=== PATIENT | female | born 1965 | race Caucasian/White ===

== ENCOUNTER 2017-08-02 13:31 | Outpatient (CLI) | payer OTHER ==
--- NOTE | 2017-08-02 14:16 | ULT ---
PELVIC ULTRASOUND WITH DOPPLER: (Transabdominal, transvaginal, Patel scale, color flow, and spectral Doppler) Date: 08/02/17 HISTORY: Irregular vaginal bleeding, fibroids. FINDINGS: The uterus measures 6.6 x 6.8 x 3.7 cm. There is a large mass in the uterus consistent with fibroid m easuring 5.8 x 5.5 x 4.5 cm. The endometrium measures 4.0 mm in thickness. No endometrial fluid is se en. The right ovary is not visualized. The left ovary measures 2.3 x 1.1 x 1.5 cm. No adnexal mass or fernandez e fluid is seen in the cul-de-sac. Flow is demonstrated to the left ovary. IMPRESSION: Uterine fibroid. POS: HSANNAN
== END 2017-08-02 13:32 | disposition home or self-care (01) ==
LOC: ULT 13:31
PROVIDERS: ATTEND Family Medicine
DX: N92.6 Irregular menstruation, unspecified (principal); D25.9 Leiomyoma of uterus, unspecified
CPT/HCPCS: 76856

== ENCOUNTER 2017-10-04 13:02 | Outpatient (CLI) | payer OTHER | END 2017-10-04 13:03 | disposition home or self-care (01) | LOC: BICMRI 13:02 | PROVIDERS: ATTEND Family Medicine | DX: M48.02 Spinal stenosis, cervical region (principal); M47.892 Other spondylosis, cervical region; M54.2 Cervicalgia; M79.601 Pain in right arm | CPT/HCPCS: 72141 ==

== ENCOUNTER 2017-10-09 10:44 | Day surgery (SDC) | payer OTHER ==
[2017-10-09] MEDS ORDERED: PROPOFOL 200 MG/20 ML VIAL ONE (11:35)
[2017-10-09] MEDS ORDERED: Lidocaine 1% PF 5 ML VIAL ONE (11:35)
--- NOTE | 2017-10-09 14:41 | OP ---
DATE OF PROCEDURE: 10/09/2017 PROCEDURES: Esophagogastroduodenoscopy with biopsy and colonoscopy with polypectomy. INDICATION FOR PROCEDURE: Melena, hematochezia and anemia. DESCRIPTION OF PROCEDURES: After the risks and benefits of the procedure were explained to the patie nt including risks of infection, bleeding, perforation, reaction to anesthesia and/or pain, informed consent was obtained. The patient was then taken to the endoscopy suite where deep sedation was admi nistered via propofol and anesthesia support. The standard gastroscope was then introduced into the mouth with intubation of the esophagus, stomach and the proximal small intestine with the findings li sted below. The patient tolerated the procedure well with no immediate perioperative complications. After completion of the upper endoscopy, the bed was then rotated 180 degrees and after rectal exami nation, the standard colonoscope was introduced into the rectum and advanced all the way to the termi nal ileum. The quality of the prep was good with adequate visualization of the colonic mucosa. The patient tolerated the procedure well with no immediate perioperative complications. UPPER ENDOSCOPY FINDINGS: ESOPHAGUS: Normal appearing mucosa was seen in the proximal and mid esophagus. However, 2-3 small e rosions less than 1 cm in size were seen in the distal esophagus at the gastroesophageal junction lauren t was not confluent within adjacent esophageal folds. There was no evidence of ulcerations or mass l esions. The diaphragmatic pinch was seen at approximately 35 cm while the GE junction was well seen at 33 cm denoting a 2 cm hiatal hernia. Normal appearing mucosa was seen in the gastric, cardia, body, fundus, incisura and along the greater curvature; however, multiple erosions were seen in the antrum and extending towards the pylorus with out overt ulceration. Multiple biopsies were taken of this region for evaluation of possible H. pylo ri. PROXIMAL SMALL BOWEL: Normal appearing mucosa was seen in both duodenal bulb and second portion of t he duodenum with no evidence of erosions, ulcerations, or mass lesions. IMPRESSION: 1. LA grade B reflux mediated erosive esophagitis. 2. Multiple erosions in the gastric antrum consistent with either nonsteroidal anti-inflammatory yulisa g use or Helicobacter pylori, status post biopsies. COLONOSCOPY FINDINGS: DIGITAL RECTAL EXAMINATION: Small to medium size external hemorrhoids were seen on external exam. COLON FINDINGS: Normal appearing mucosa was seen in the terminal ileum. Normal appearing mucosa was seen at the ileocecal valve, appendix and within the cecum itself. Normal appearing mucosa was also seen in the ascending, transverse, descending and sigmoid colons. A 3-4 mm polyp was seen in the re ctum and completely removed with cold snare polypectomy. It was retrieved and placed in a specimen j ar for evaluation. On rectal retroflexion, small internal hemorrhoids were also noted. IMPRESSION: 1. A 3-4 mm rectal polyp, status post cold snare polypectomy. 2. Both internal and external hemorrhoids (most likely reason for patient's recent hematochezia). RECOMMENDATIONS: 1. We will follow up on biopsy results with further treatment regimens depending on those results. 2. Would avoid NSAID administration given the erosions seen during examination today. 3. Continue current acid reflux regimen until seen in the GI Clinic. 4. Would recommend a higher fiber diet given presence of both internal and external hemorrhoids. 5. Follow up in the GI Clinic in 3 weeks for followup on acid reflux as well as biopsy results.
== END 2017-10-09 15:23 | disposition home or self-care (01) ==
LOC: SDC 10:44
PROVIDERS: ATTEND Internal Medicine
PROC: 0DBP8ZX Excision of Rectum, Via Natural or Artificial Opening Endoscopic, Diagnostic (ICD-10-PCS; principal; 2017-10-09)
PROC: 0DB68ZX Excision of Stomach, Via Natural or Artificial Opening Endoscopic, Diagnostic (ICD-10-PCS; principal; 2017-10-09)
DX: K31.9 Disease of stomach and duodenum, unspecified (principal); K22.10 Ulcer of esophagus without bleeding; K44.9 Diaphragmatic hernia without obstruction or gangrene; K21.0 Gastro-esophageal reflux disease with esophagitis; K25.9 Gastric ulcer, unspecified as acute or chronic, without hemorrhage or perforation; K92.1 Melena; K62.1 Rectal polyp; K64.4 Residual hemorrhoidal skin tags; K64.8 Other hemorrhoids; Z88.6 Allergy status to analgesic agent; F41.9 Anxiety disorder, unspecified; M19.90 Unspecified osteoarthritis, unspecified site; J45.909 Unspecified asthma, uncomplicated; F32.9 Major depressive disorder, single episode, unspecified; E07.9 Disorder of thyroid, unspecified; D64.9 Anemia, unspecified; Z87.891 Personal history of nicotine dependence; Z79.899 Other long term (current) drug therapy
CPT/HCPCS: 88305; 88312; J2001; J2704

== ENCOUNTER 2017-11-27 09:39 | Outpatient (CLI) | payer OTHER ==
--- NOTE | 2017-11-27 15:42 | MMO ---
BILATERAL SCREENING MAMMOGRAM: Date: 11/27/17 COMPARISON: 05/06/13, 03/04/12, 08/10/10. HISTORY: Annual screening exam. This patient's mammogram was interpreted with the assistance of computer-aided detection. FINDINGS: There are scattered fibroglandular changes of both breasts. Nodular density in the upper outer right breast is slightly more prominent on the 2011 and 2013 studies, but very similar in appearance to the 2012 study. It is a benign, circumscribed appearing lesion. Calcifications within the right breast a lso appear benign. IMPRESSION: BIRADS 2: Benign Finding(s) Continued annual follow-up examinations are recommended. POS: SHANNAN
== END 2017-11-27 09:40 | disposition home or self-care (01) ==
LOC: SCSMAMMO 09:39
PROVIDERS: ATTEND Family Medicine
DX: Z12.31 Encounter for screening mammogram for malignant neoplasm of breast (principal)
CPT/HCPCS: 77067

== ENCOUNTER 2017-12-24 06:09 | Day surgery (SDC) | payer OTHER ==
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
[2017-12-23 11:21] VITALS: BMI 34.4
[2017-12-24] MEDS ORDERED: Thrombin 5000 UNITS/5 ML VIAL ONE (06:16)
[2017-12-24] MEDS ORDERED: Sodium Chloride 0.9% 10 ML ONE (06:16)
[2017-12-24] MEDS ORDERED: CEFAZOLIN/Water 2 GM/20 ML SYRINGE ONE (06:20)
[2017-12-24] MEDS ORDERED: Fentanyl 100 MCG/2 ML VIAL ONE ×3 (06:22→10:59)
[2017-12-24 06:54] LABS: #Eosinphils 0.1 thou/uL (0.0-0.7); #Lymphocytes 1.7 thou/uL (1.20-3.40); #Monocytes 0.3 thou/uL (0.11-0.59); %Basophils 0.8 % (0.0-1.0); %Lymphocytes 41.3 % (21.0-51.0); %Monocytes 7.4 % (0.0-10.0); %Neutrophils 48.5 % (42.0-75.0); Hemoglobin 10.8 g/dL (12.0-16.0); Mean Corpuscular HGB CONC 34.6 g/dL (32.0-36.0); Mean Corpuscular Hemoglobin 32.4 pg (27.0-31.0); Mean Corpuscular Volume 93.7 fL (78.0-98.0); Mean Platelet Volume 7.2 fL (7.4-10.4); Platelet Count 226 thou/uL (130-400); RBC Distribution Width 11.9 % (11.5-14.5); Red Blood Cell (RBC) Count 3.34 mill/uL (4.20-5.40); White Blood Cell (WBC) Count 4.2 thou/uL (4.8-10.8)
[2017-12-24] MEDS ORDERED: Midazolam HCl 2 mg/2 ml Vial ONE (07:00)
[2017-12-24 07:01] LABS: PTT 33.5 SEC (22.9-36.1)
[2017-12-24 07:13] LABS: Anion Gap 13 mmol/L (10-20); BUN (Urea Nitrogen) 28 mg/dL (9.8-20.1); Calc. Creatinine Clearance 108 mL/min (70-130); Calcium 9.5 mg/dL (7.8-10.44); Carbon Dioxide 28 mmol/L (22-29); Chloride 103 mmol/L (98-107); Estimated GFR-MDRD 73; Glucose 99 mg/dL (70-105); Potassium 3.6 mmol/L (3.5-5.1); Sodium 140 mmol/L (136-145)
[2017-12-24] MEDS ORDERED: PHENYLEPHRINE-NS 100 MCG/ML 10 ML SYRINGE ONE ×3 (07:54→11:36)
--- NOTE | 2017-12-24 10:34 | OP ---
DATE OF PROCEDURE: 12/24/2017 SURGEON: Cain Prescott M.D. HYDROGEN TREATER: Danielle Cha PA-C. PREOPERATIVE INDICATION: Treat pain, prevent neurological deterioration. PREOPERATIVE DIAGNOSES: Cervical intervertebral disk disease with radiculopathy and myelopathy, C4-C 5 and C5-C6. POSTOPERATIVE DIAGNOSES: Cervical intervertebral disk disease with radiculopathy and myelopathy, C4- C5 and C5-C6. OPERATIVE PROCEDURE: Anterior cervical diskectomy, intervertebral arthrodesis, placement of interver tebral biomechanical device, anterior cervical plating C4-C5, C5-C6, local morselized autograft, mors elized allograft, operating microscope. PREOPERATIVE MEDICATION: Ancef 2 grams IV. DRAIN NUMBER: Zero. DRAIN TYPE: None. OPERATIVE DICTATION: The patient was brought to the operating room. General endotracheal anesthesia was induced. The patient's head was carefully positioned in gel-filled donut shaped head rest and a lateral fluoro radiograph was used to plan our incision. The right side neck was sterilely prepped and draped. We opened our incision with a 10 blade knife and controlled bleeding with bipolar cauter y. We dissected sharply to the platysma and cut this muscle in line with our incision. We continued our dissection medial to the sternocleidomastoid, lateral to the trachea and esophagus until we arri thais at the prevertebral space. We placed a marker at C4-C5 and took a lateral fluoro radiograph to c onfirm the levels upon which we were operating. We then elevated the longus colli muscles off the an terior surface of C4, C5, and C6, and placed self-retaining retractors beneath them. Distraction pin s were placed at C4 and C6 and we distracted across both of the intervening interspaces. We incised the interspaces and removed disk contents using curettes and rongeurs. The operative microscope was brought in the field. Under microscopic magnification and using microsurgical techniques, we removed the remainder of the i ntervertebral disk. We accessed the ventral epidural space with a micro curette and then using a Ker rison rongeur, we removed posterior osteophytes and posterior longitudinal ligament from one neural f oramen all the way to the other across the entire interspace at C4-C5 and again at C5-C6. At the com pletion of decompression, there was no pressure on the dura and the foramina were widely patent. We irrigated. We prepared the endplates for grafting with a curette and a bone rasp and we measured the height of the interspace to 6 mm at C5-C6 and 7 mm at C4-C5. Two separate PEEK intervertebral graft s were brought into the field. The posterior and anterior osteophytes removed during our decompressi on were morcellized on the back table after all soft tissue was removed. The morselized bone was add ed to demineralized bone matrix and this fusion substrate was placed in the two PEEK grafts. A 7 mm graft was advanced into the C4-C5 interspace and the 6 mm graft into the C5-C6 interspace to the appr opriate depth using radiographic guidance. I then brought a 28 mm anterior cervical plate into the f ield. We drilled airplane pilot chief holes through the plate into the vertebral segments at C4, C5, and C6 and aff ixed the plate using 14 mm screws. We engaged the locking mechanism over each of the 6 screws. AP a nd lateral fluoro radiographs confirmed adequate position of instrumentation. We carefully irrigated with bacitracin irrigation. Hemostasis was excellent. We closed the wound in anatomic layers with a sterile dressing. This was a clean case and no contamination.
[2017-12-24] MEDS ORDERED: Lidocaine 1% PF 5 ML VIAL ONE (11:36)
[2017-12-24] MEDS ORDERED: Dexamethasone 20 MG/5 ML VIAL ONE (11:36)
[2017-12-24] MEDS ORDERED: diphenhydrAMINE 50 MG/ML VIAL ONE (11:36)
[2017-12-24] MEDS ORDERED: Glycopyrrolate 0.2 MG/ML 5 ML SYRINGE ONE (11:36)
[2017-12-24] MEDS ORDERED: Metoclopramide HCl 10 MG/2 ML VIAL ONE (11:36)
[2017-12-24] MEDS ORDERED: PROPOFOL 200 MG/20 ML VIAL ONE (11:36)
[2017-12-24] MEDS ORDERED: ePHEDrine/0.9% NaCl/PF SYRINGE 50 mg/10 ml ONE (11:36)
[2017-12-24] MEDS ORDERED: Ondansetron HCl/PF 4 MG/2 ML Vial ONE (11:36)
== END 2017-12-24 14:13 ==
LOC: SDC 06:09
PROVIDERS: ATTEND Neurological Surgery
PROC: 0RG20J0 Fusion of 2 or more Cervical Vertebral Joints with Synthetic Substitute, Anterior Approach, Anterior Column, Open Approach (ICD-10-PCS; principal; 2017-12-24)
PROC: 0RG2070 Fusion of 2 or more Cervical Vertebral Joints with Autologous Tissue Substitute, Anterior Approach, Anterior Column, Open Approach (ICD-10-PCS; principal; 2017-12-24)
PROC: 0RG20A0 Fusion of 2 or more Cervical Vertebral Joints with Interbody Fusion Device, Anterior Approach, Anterior Column, Open Approach (ICD-10-PCS; principal; 2017-12-24)
PROC: 0RB30ZZ Excision of Cervical Vertebral Disc, Open Approach (ICD-10-PCS; principal; 2017-12-24)
DX: M50.021 Cervical disc disorder at C4-C5 level with myelopathy (principal); M50.121 Cervical disc disorder at C4-C5 level with radiculopathy; M48.02 Spinal stenosis, cervical region; I10 Essential (primary) hypertension; E78.5 Hyperlipidemia, unspecified; Z88.8 Allergy status to other drugs, medicaments and biological substances; Z79.899 Other long term (current) drug therapy; Z87.891 Personal history of nicotine dependence
CPT/HCPCS: 36415; 76001; 80048; 85025; 85610; 85730; 96374; A4216; C1713; C1776; J1100; J1200; J2001; J2250; J2405; J2704; J2765; J3010; J3490

== ENCOUNTER 2018-02-17 08:36 | Inpatient (IN) | payer OTHER ==
[2018-02-14 17:03] VITALS: BMI 34.4
[2018-02-17 09:16] LABS: Hemoglobin 11.1 g/dL (12.0-16.0); Mean Corpuscular HGB CONC 32.9 g/dL (32.0-36.0); Mean Corpuscular Hemoglobin 31.3 pg (27.0-31.0); Mean Corpuscular Volume 95.3 fL (78.0-98.0); Mean Platelet Volume 8.3 fL (7.4-10.4); Platelet Count 179 thou/uL (130-400); RBC Distribution Width 11.7 % (11.5-14.5); Red Blood Cell (RBC) Count 3.53 mill/uL (4.20-5.40); White Blood Cell (WBC) Count 4.7 thou/uL (4.8-10.8)
[2018-02-17] MEDS ORDERED: CEFAZOLIN/Water 2 GM/20 ML SYRINGE ONE (09:23)
[2018-02-17] MEDS ORDERED: Famotidine/PF 20 mg/2ml Vial ONE (09:23)
[2018-02-17] MEDS ORDERED: Gabapentin 300 MG CAP ONE (09:23)
[2018-02-17] MEDS ORDERED: CeleCOXIB 100 MG CAP ONE (09:23)
[2018-02-17 09:26] LABS: BHCG - Serum Negative (NEGATIVE); Pregs Control Background? CLEAR/WHITE (CLR/WHITE); Pregs Control Bar Appear? YES (CONTROL BAR)
[2018-02-17 09:43] LABS: Band 2 % (5-11); Eosinophils 1 % (0-10); Lymphocytes 21 % (21-51); MDiff Complete? YES; Monocytes 6 % (0-10); Neutrophil 69 % (42-75); Promyelocytes 1 % (0-0); RBC Morphology Normal
[2018-02-17] MEDS ORDERED: Fentanyl 100 MCG/2 ML VIAL ONE ×2 (10:08→13:16)
[2018-02-17] MEDS ORDERED: Midazolam HCl 2 mg/2 ml Vial ONE (10:08)
[2018-02-17] MEDS ORDERED: Bupivacaine HCl 0.5%/Epinephrine 1:200,000/PF 30 ml Vial ONE (10:44)
[2018-02-17] MEDS ORDERED: Promethazine HCl 25 MG/ML VIAL IM PRN ×2 (13:07→13:14)
[2018-02-17] MEDS ORDERED: Ondansetron HCl/PF 4 MG/2 ML Vial IVP PRN ×2 (13:07→13:14)
[2018-02-17] MEDS ORDERED: Promethazine HCl 25 MG/ML VIAL SLOW IVP PRN (13:07)
[2018-02-17] MEDS ORDERED: Zolpidem Tartrate 5 MG TAB PO PRN (13:14)
[2018-02-17] MEDS ORDERED: Bisacodyl 10 MG SUPP PR PRN (13:14)
[2018-02-17] MEDS ORDERED: Simethicone Chewable 80 MG TAB PO PRN (13:14)
[2018-02-17] MEDS ORDERED: diphenhydrAMINE 25 MG CAP PO PRN (13:14)
[2018-02-17] MEDS ORDERED: traMADol HCl 50 MG TAB PO PRN ×2 (13:14)
[2018-02-17] MEDS ORDERED: Albuterol Sulfate 1.25 MG/3 ML NEB NEB PRN (13:16)
[2018-02-17] MEDS: Lactated Ringer's 1,000 ML IV SCH ×3 (15:17→23:22)
[2018-02-17] MEDS: Acetaminophen 500 MG TAB PO SCH ×2 (15:17→21:49)
[2018-02-17] MEDS: Ketorolac Tromethamine 30 MG/ML VIAL IVP SCH (18:16)
[2018-02-17] MEDS: Gabapentin 300 MG CAP PO SCH (21:49)
[2018-02-18] MEDS: Ketorolac Tromethamine 30 MG/ML VIAL IVP SCH ×2 (00:35→06:33)
[2018-02-18] MEDS: Acetaminophen 500 MG TAB PO SCH ×3 (04:53→14:55)
[2018-02-18 06:02] LABS: Hemoglobin 10.1 g/dL (12.0-16.0); Mean Corpuscular HGB CONC 33.7 g/dL (32.0-36.0); Mean Corpuscular Hemoglobin 32.2 pg (27.0-31.0); Mean Corpuscular Volume 95.6 fL (78.0-98.0); Mean Platelet Volume 7.6 fL (7.4-10.4); Platelet Count 212 thou/uL (130-400); RBC Distribution Width 11.5 % (11.5-14.5); Red Blood Cell (RBC) Count 3.13 mill/uL (4.20-5.40); White Blood Cell (WBC) Count 8.3 thou/uL (4.8-10.8)
[2018-02-18] MEDS: Lactated Ringer's 1,000 ML IV SCH (06:29)
[2018-02-18] MEDS ORDERED: DULoxetine 30 MG CAP PO SCH (09:00)
[2018-02-18] MEDS ORDERED: Lisinopril 20 MG TAB PO SCH (09:00)
[2018-02-18] MEDS: Gabapentin 300 MG CAP PO SCH (10:23)
[2018-02-18 13:06] VITALS: BP 104/56; TEMP 98.2
--- NOTE | 2018-02-18 14:00 | PRG ---
DATE OF SERVICE: 02/18/2018 TIME OF VISIT: Approximately, 07:45 a.m. SUBJECTIVE: The patient denies any complaints. Her pain is well controlled on IV Toradol and p.o. T ylenol and gabapentin. She feels very hungry. Has tolerated liquids. Denies flatus. She is due to void at this point and due to ambulate this morning. She denies any respiratory or chest complaints . OBJECTIVE: VITAL SIGNS: Blood pressure 104/56, temperature 98.2, pulse is 80, respirations 20, pulse ox is 99% on room air. GENERAL: In no acute distress. CARDIAC: Regular rate and rhythm. LUNGS: Clear to auscultation bilaterally. ABDOMEN: Soft, nontender, nondistended. Incisions are clean, dry, and intact. EXTREMITIES: No edema, cyanosis, or clubbing. Sequential compression devices are in place. LABORATORY DATA: Hemoglobin 10.1, hematocrit 30.0, platelets 212. ASSESSMENT AND PLAN: This is a 52-year-old, status post robotic-assisted total laparoscopic hysterec nan and bilateral salpingectomy. Postoperative day #1, vital signs are stable and within normal peña its. The patient has appropriate postop milestones; will need to tolerate regular diet, ambulate, an d void prior to discharge. However, the patient will likely be cleared for discharge today. She messi l continue ibuprofen, Tylenol, and tramadol on discharge for pain medicine and use stool softeners as needed. She is given restrictions following discharge of no lifting heavier than 20 pounds and pelv ic rest and instructions to follow up in 2 weeks postoperative time. She is also instructed on ambul ation and deep breathing exercises, as the patient has a history of asthma, but final pathology is pe nding at the time of this note and we will follow up on this at her postoperative visit.
--- NOTE | 2018-02-18 15:47 | OP ---
DATE OF OPERATION: 02/17/2018 PREOPERATIVE DIAGNOSES: 1. Uterine fibroids. 2. Pelvic pain. POSTOPERATIVE DIAGNOSES: 1. Uterine fibroids. 2. Pelvic pain. PROCEDURE: Robotic assisted total laparoscopic hysterectomy and bilateral salpingectomy. ANESTHESIA: General endotracheal. ATTENDING SURGEON: Marissa Headley M.D. FIELD CROP TECHNICAL OFFICER: Violet Huitron M.D. ESTIMATED BLOOD LOSS: 100 mL PATHOLOGY: Uterus, cervix, bilateral fallopian tubes. FINDINGS: A 12-week size uterus with a large predominant fibroid a posterior lower uterus. The ovar ies and fallopian tubes were normal appearing. The upper abdomen was within normal limits. The blad faye was negative for any injury on backfilling of the bladder and hemostasis was noted. COMPLICATIONS: None. DRAINS: Holloway catheter. OPERATIVE TECHNIQUE: The patient was taken to the operating room where general anesthesia was obtain ed without difficulty. The patient was prepped and draped in a sterile fashion in the dorsal lithoto my position. A Holloway catheter was placed in the bladder. Speculum was placed in the vagina. Anteri or lip of the cervix was grasped with a single tooth tenaculum. Cervix was dilated with Ta dilator s and sounded to 8 cm. The PEDRO manipulator was assembled with an 8 cm tip and a 3.5 cm colpotomizer ring. The PEDRO tip was inserted to the uterine fundus, balloon was inflated. Speculum was removed and a colpotomizer ring was advanced to fit snugly around the cervix and the tenaculum was removed of f the cervix. Legs were placed in low lithotomy. Attention was turned to the abdomen. 0.25% Marcai ne with epinephrine was infiltrated into the umbilicus and a 12 mm skin incision was made. The Veres s needle was passed to the abdomen noting an opening pressure of 3 mmHg. The Veress needle was remov ed. The 12 mm trocar was advanced into the abdomen. The trocar balloon was inflated and secured, an d confirmed placement with the robotic camera. Steep Trendelenburg was obtained. The right and left lower quadrant 8 mm robotic trocars were placed under direct visualization after infiltrating with a nesthetic. The right upper quadrant 11 mm assistant drafter port was also placed under direct visualization after infiltrating with 0.25% Marcaine with epinephrine. The robot was docked. The right robotic ar m contained the monopolar scissors, left robotic arm contained a fenestrated bipolar. Surgeon consol e took control. The left fallopian tube segment was grasped and elevated. The distal end of the mes osalpinx was cauterized with the fenestrated and transected with the scissors and this fallopian tube was then removed out of the abdomen. The utero-ovarian ligament was clamped and cauterized x2 with the fenestrated and incised with the scissors and carried down to the level of the round ligament lauren t was cauterized in the mid portion and incised with the scissors. This opened up the anterior and p osterior leaf of the broad ligament, posterior leaf of broad ligament was undermined with the fenestr ated and dropped down to the level of the internal cervical os and the retroperitoneum was dissected laterally bluntly with the fenestrated pushing and spread technique to allow the ureter to fall more lateral. The anterior leaf of the broad ligament was also incised down to the level of the bladder f lap. The bladder was slightly thickened and that was carefully taken down off the lower uterine segm ent and the cervix undermining with the fenestrated to ensure a clear window and this was incised and pushed down distally below the level of the internal cervical os. The bladder was backfilled to not e the limitations of the bladder. Attention was then turned to the right side where the right fallop shi tube segment was grasped and elevated and mesosalpinx was cauterized with the fenestrated and tra nsected with the scissors. The fallopian tube was removed out of the abdomen and the utero-ovarian w as cauterized x2 with the fenestrated and incised with scissors and this was incised down to the leve l of the round ligament where it was cauterized in the mid portion incised. The posterior leaf of th e broad ligament was dropped down on cautery with the scissors down to the level of the internal cerv ical os and the retroperitoneum was dissected off the cervix and the uterine pedicle to skeletonize t he vessels and allow the ureter to drop further away. The anterior leaf of the broad ligament was al so opened up on the right side down to the level of the contralateral incision and the bladder flap w as further developed with a scoring technique over the pubocervical fascia and blunt dissection down distally with the scissors also placing traction on the bladder flap to allow the bladder adventitia to come down easily. Hemostasis of the bladder pillars was achieved with the scissors on cautery. T he vessels bilaterally were then clamped and cauterized at the level of the internal cervical os. Th e posterior fibroid protruded more to the right side than the left, and this made skeletonization of the vessels difficult. However, the colpotomizer ring was hugged, and the vessels were clamped and t hen incised very carefully. The anterior colpotomy was made and carried laterally with the fenestrat ed was slipped underneath the pedicle and bilateral apices and cauterized for more secure hemostasis. The pedicle was incised just above the internal os and then the uterine pedicle was dissected on th e medial portion of it to allow it to further away from the vaginal cuff, apex, and hemostasis was no dayana bilaterally. Posterior colpotomy was complete and the uterus was removed into the vagina. Hemos tasis was noted of the vaginal cuff. The scissors were traded out for the needle hack driver. A 2-0 Stra tafix barbed suture was then used to close the cuff in a running fashion incorporating vaginal mucosa and posterior peritoneum. This was ran back for a second layer and hemostasis was noted. The needl e was removed out of the abdomen and irrigation of the pelvis was performed. Low pressure check was performed. Hemostasis was noted to be excellent. All instruments were removed out of the abdomen. Pneumoperitoneum was released and the robot was then docked. The fascia of the umbilical port was cl osed with a 0 Vicryl and a running [id number]-fx-[id number] fashion. The uterus was then removed out of the v agina. The uterus was very tight to fit out of the vagina; however, delivered after some manipulatio n. There was a slight first degree laceration of the perineum that was hemostatic with a 2-0 Vicryl suture in a ezahyw-an-yygiu fashion and no other active bleeding on thorough inspection of the vagina l cavity with the speculum. The skin was closed with 4-0 Monocryl in subcuticular fashion. Dermabon d was applied. The patient tolerated procedure well. Sponge, lap, needle counts were correct x2. T he patient was taken to recovery in stable condition. Patient received Ancef 2 grams prior to the pr ocedure.
[2018-02-22] MEDS ORDERED: Ibuprofen 800 MG TAB PO SCH (14:00)
== END 2018-02-18 15:33 | disposition home or self-care (01) | DRG 743 ==
LOC: EEVIPCON 08:36 → SURG A 08:36 → 3SE 14:21
PROVIDERS: ADMIT Student in an Organized Health Care Education/Training Program; ATTEND Student in an Organized Health Care Education/Training Program
PROC: 0UT94ZZ Resection of Uterus, Percutaneous Endoscopic Approach (ICD-10-PCS; principal; 2018-02-17)
PROC: 0UT74ZZ Resection of Bilateral Fallopian Tubes, Percutaneous Endoscopic Approach (ICD-10-PCS; 2018-02-17)
DX: D25.1 Intramural leiomyoma of uterus (principal); N95.0 Postmenopausal bleeding; R10.2 Pelvic and perineal pain
CPT/HCPCS: 36415; 84703; 85007; 85027; 86850; 86900; 86901; 88307; J0670; J1885; J2250; J2270; J3010; S0028